=== PATIENT | male | born 1975 | race Caucasian/White ===

== ENCOUNTER 2020-01-12 09:32 | Emergency (ER) | payer OTHER ==
[~2020-01-12] VITALS: Ht 172.7 cm; Wt 77.1 kg
[~2020-01-12 09:32] MED LIST: DILAUDID4 MG PO; NORCO 5-325 TA1 EACH PO
[2020-01-12] MEDS ORDERED: TRAMADOL HCL50 MG PO (14:48)
[2020-01-12] MEDS ORDERED: FLOMAX0.4 MG PO (14:48)
[2020-01-12] MEDS ORDERED: ZOFRAN8 MG PO (14:48)
== END 2020-01-12 15:06 | disposition home or self-care (01) ==
LOC: ED 09:32
DX: N13.2 Hydronephrosis with renal and ureteral calculous obstruction (principal); Z87.891 Personal history of nicotine dependence; Z88.0 Allergy status to penicillin
CPT/HCPCS: 74176; 80053; 81001; 85025; 96374; 96375; 99284-25; J1170; J1885; J2405

== ENCOUNTER 2020-05-27 11:39 | Emergency (ER) | payer OTHER ==
[~2020-05-27] VITALS: Ht 172.7 cm; Wt 77.1 kg
--- OUTSIDE RECORDS SUMMARY | ~2020-05-27 | XMS | Encounter Summary ---
Demographics + + + | Address | [address] | | | [place] [address] | + + + | Home Phone | | + + + | Preferred Language | Unknown | + + + | Marital Status | | + + + | Protestant Affiliation | Unknown | + + + | Race | Unknown | + + + | Ethnic Group | Unknown | + + + Author + + + | Author | [facility] | | | and [place] | + + + | Organization | [facility] | | | and [place] | + + + | Address | Unknown | + + + | Phone | Unavailable | + + + Support + + +---------+ + | Name | Relationship | Address | Phone | + + +---------+ + | Jovana Bailey | ECON | Unknown | | + + +---------+ + Care Team Providers + +------+ + | Care Manager Chemical Name | Role | Phone | + +------+ + PCP | Unavailable | + +------+ + Encounter Details +--------+ + + + + | Date | Type | Department | Care Team | Description | +--------+ + + + + | 11/15/ | [facility] | [facility] | Benny Younger | | | 2006 | Encounter | MED CTR XRAY [address] | MD [address] | | | | | [place] | [address] [place] | | | | | [place] [address] | [place] [address] | | | | | [phone] | [phone] | | | | | | | | +--------+ + + + + Social History + +-------+ +--------+------+ | Tobacco Use | Types | Packs/Day | Years | Date | | | | | Used | | + +-------+ +--------+------+ | Never Assessed | | | | | + +-------+ +--------+------+ + + + | Sex Assigned at | Date Recorded | | | | + + + | Not on file | | + + + documented as of this encounter Plan of Treatment Not on filedocumented as of this encounter Visit Diagnoses Not on filedocumented in this encounter"
--- OUTSIDE RECORDS SUMMARY | ~2020-05-27 | XMS | Encounter Summary ---
Demographics + + + | Address | [address] | | | [place] [address] | + + + | Home Phone | | + + + | Preferred Language | Unknown | + + + | Marital Status | | + + + | Synagogue Affiliation | Unknown | + + + | Race | Unknown | + + + | Ethnic Group | Unknown | + + + Author + + + | Author | [facility] | | | and [place] | + + + | Organization | [facility] | | | and [...] Team Providers + +------+ + | Care Commercial Airplane Pilot Name | Role | Phone | + +------+ + | Yony Canseco MD | PCP | | + +------+ + Reason for Visit +--------+ + | Reason | Comments | +--------+ + | Other | CT report from [facility] | +--------+ + Encounter Details +--------+ + + + + | Date | Type | Department | Care Team | Description | +--------+ + + + + | 03/31/ | Documentati | [facility] | Deepika, | Other (CT report | | 2020 | on | PULMONOLOGY [address] | [facility] | from [facility]) | | | | [address] | [employer] 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 | | | | | [place] | | | | | | [address] | | | | | | [phone] | | | +--------+ + + + + Social History + +-------+ +--------+ + | Tobacco Use | Types | Packs/Day | Years | Date | | | | | Used | | + +-------+ +--------+ + | Former Smoker | | | | Quit: 2009 | + +-------+ +--------+ + + +---+---+---+ | Smokeless Tobacco: | | | | | Never Used | | | | + +---+---+---+ + + +---------+ + | Alcohol Use | Drinks/Week | oz/Week | Comments | + + +---------+ + | Not Currently | | | | + + +---------+ + + + + | Sex Assigned at | Date Recorded | | | | + + + | Not on file | | + + + documented as of this encounter Progress Notes Marivel Poe, Pari Mutuel Ticket Seller - 03/31/2020 4:[address] [facility] and [facility] into [facility] chart documented in this encounter Plan of Treatment Not on filedocumented as of this encounter Visit Diagnoses Not on filedocumented in this encounter"
--- OUTSIDE RECORDS SUMMARY | ~2020-05-27 | XMS | Encounter Summary ---
Demographics + + + | Address | [address] | | | [place] [address] | + + + | Home Phone | | + + + | Preferred Language | Unknown | + + + | Marital Status | | + + + | Quaker Affiliation | Unknown | + + + | Race | Unknown | + + + | Ethnic Group | Unknown | + + + Author + + + | Author | [facility] | | | and [place] | + + + | Organization | [facility] | | | [...] Team Providers + +------+ + | Care Well Logging Operator Mud Analysis Name | Role | Phone | + +------+ + PCP | Unavailable | + +------+ + Encounter Details +--------+ + + + + | Date | Type | Department | Care Team | Description | +--------+ + + + + | 09/25/ | Hospital | [facility] | Benny Younger | | | 2006 - | Encounter | MED CTR OP REHAB | MD [address] | | | | | [address] [place] | [address] [place] | | | 09/27/ | | [place] [address] | [place] [address] | | | 2006 | | [phone] | [phone] | | | | | | | [...]
--- OUTSIDE RECORDS SUMMARY | ~2020-05-27 | XMS | Encounter Summary ---
Demographics + + + | Address | [address] | | | [place] [address] | + + + | Home Phone | | + + + | Preferred Language | Unknown | + + + | Marital Status | | + + + | Adventist Affiliation | Unknown | + + + | Race | Unknown | + + + | Ethnic Group | Unknown | + + + Author + + + | Author | [facility] | | | and [place] | + + + | Organization | [facility] | | | and [...] Team Providers + +------+ + | Care Boom Tender Name | Role | Phone | + +------+ + | Yony Canseco MD | PCP | | + +------+ + Reason for Visit + +--------+ + | Reason | Onset | Comments | | | Date | | + +--------+ + | Referral | 03/26/ | | | (PreAuthorization) | 2020 | | + +--------+ + Encounter Details +--------+ + + + + | Date | Type | Department | Care Team | Description | +--------+ + + + + | 03/26/ | Telephone | [facility] | Rabia Rubalcava, | Referral | | 2019 | | PULMONOLOGY [address] | DIGITAL FORENSIC ANALYST [address] | (PreAuthorization) | | | | [address] | [address], | | | | | [place], [place] | [place] [address] | | | | | [address] | [phone] | | | | | [phone] | | | +--------+ + + + [...] + + documented as of this encounter Miscellaneous Notes Telephone Encounter - Mary Johnson - 03/26/2020 3:26 PM Mohit, is calling regarding Referral (PreAuthorization) and would like a call back. Additional Call Details: Mariposa, from [facility], is needing a Prior Authorization for Patients CT Scan, it can be faxed to: [phone]. If any questions, Mariposa can be reache d at [phone] If this is a symptom based call, was patient offered triage? Not Applicable If this is a symptom based call and you were unable to immediately transfer the call to a lulu delgado charge master coordinator was caller made aware that if at any time he feels it is an emergency they se uld call 911 or go to the nearest emergency room? not applicable documented in this encounter Plan of Treatment Not on filedocumented as of this encounter Visit Diagnoses Not on filedocumented in this encounter"
--- OUTSIDE RECORDS SUMMARY | ~2020-05-27 | XMS | Encounter Summary ---
Demographics + + + | Address | [address] | | | [place] [address] | + + + | Home Phone | | + + + | Preferred Language | Unknown | + + + | Marital Status | | + + + | Baptism Affiliation | Unknown | + + + | Race | Unknown | + + + | Ethnic Group | Unknown | + + + Author + + + | Author | [facility] | | | and [place] | + + + | Organization | [facility] | | | [...] Team Providers + +------+ + | Care Clinical Social Work Aide Name | Role | Phone | + +------+ + | Yony Canseco MD | PCP | | + +------+ + Reason for Visit +--------+ + | Reason | Comments | +--------+ + | Other | recieved records from Dr Hidalgo's office | +--------+ + Encounter Details +--------+ + + + + | Date | Type | Department | Care Team | Description | +--------+ + + + + | 01/27/ | Documentati | [facility] | Deepika, | Other (recieved | | 2019 | on | PULMONOLOGY [address] | [facility] | records from | | | | [address] | Ferry Engineer | [place]'s office) | | | | [place], [place] | | | | | | [address] | | | | | | [phone] | | | +--------+ + + + [...] of this encounter Progress Notes Marivel Poe, Top Steep Tender - 01/28/2020 4:[address] Hidalgo[place] office. Labeled and scanned into PT chart documented in this encounter Plan of Treatment Not on filedocumented as of this encounter Visit Diagnoses Not on filedocumented in this encounter"
--- OUTSIDE RECORDS SUMMARY | ~2020-05-27 | XMS | Encounter Summary ---
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 | | | | | | test has been validated | | | | | | using serum samples. | | | | | | Themkarlaufacturer has not | | | | | | determined the efficacy | | | | | | of this testwhen | | | | | | performed on CSF, | | | | | | plasma, joint or pleural | | | | | | fluidspecimens. The | | | | | | performance | | | | | | characteristics of this | | | | | | test weredetermined by | | | | | | [employer] | | | | | | [employer]Borderline/Equivocal | | | | | | RF results warrant | | | | | | redraw and retestingto | | | | | | confirm.Testing | | | | | | performed at [facility] | | | | | | [employer], [address] | | | | | | [facility] | | | | | | [facility],[place], [place] | | | | | | [phone]. | | | | + + + + + + + + | Specimen | + + | Blood | + + + + + + + | Performing | Address | City/State/Zipcode | Phone Number | | Organization | | | | + + + + + | REFERENCE LAB | [address] [place] [address] | [place], [place] | [phone] | | [facility] | [address] | [address] | | | LABORATORY | | | | + + + + + | REFERENCE LAB | [address] [place] [address] | [place], [place] | | | [facility] | Bl[address] | [address] | | | LABORATORY | | | | + + + + + CBC with Differential (01/30/2020 11:57 AM PST) + + + + + + | Component | Value | Ref Range | Performed | Pathologist | | | | | At | Signature | + + + + + + | WBC | 8.51 | 3.80 - 11.00 | REFERENCE | | | | | K/uL | LAB | | | | | | [facility] | | | | | | LABORATORY | | + + + + + + | RBC | 5.16 | 4.20 - 5.70 | REFERENCE | | | | | M/uL | LAB | | | | | | [facility] | | | | | | LABORATORY | | + + + + + + | Hemoglobin | 15.3 | 13.2 - 17.0 | REFERENCE | | | | | g/dL | LAB | | | | | | [facility] | | | | | | LABORATORY | | + + + + + + | Hematocrit | 44.3 | 39.0 - 50.0 % | REFERENCE | | | | | | LAB | | | | | | [facility] | | | | | | LABORATORY | | + + + + + + | MCV | 85.7 | 80.0 - 100.0 fl | REFERENCE | | | | | | LAB | | | | | | [facility] | | | | | | LABORATORY | | + + + + + + | MCH | 29.7 | 27.0 - 34.0 pg | REFERENCE | | | | | | LAB | | | | | | [facility] | | | | | | LABORATORY | | + + + + + + | MCHC | 34.6 | 32.0 - 35.5 | REFERENCE | | | | | g/dL | LAB | | | | | | [facility] | | | | | | LABORATORY | | + + + + + + | RDW-SD | 40.7 | 37 - 53 fl | REFERENCE | | | | | | LAB | | | | | | [facility] | | | | | | LABORATORY | | + + + + + + | Platelet | 345 | 150 - 400 K/uL | REFERENCE | | | Count | | | LAB | | | | | | [facility] | | | | | | LABORATORY | | + + + + + + | MPV | 8.6 | fl | REFERENCE | | | | | | LAB | | | | | | [facility] | | | | | | LABORATORY | | + + + + + + | Diff Type | AUTOMATED | | REFERENCE | | | | | | LAB | | | | | | [facility] | | | | | | LABORATORY | | + + + + + + | % | 67.12 | % | REFERENCE | | | Neutrophils | | | LAB | | | | | | [facility] | | | | | | LABORATORY | | + + + + + + | % | 23.50 | % | REFERENCE | | | Lymphocytes | | | LAB | | | | | | [facility] | | | | | | LABORATORY | | + + + + + + | Monocyte % | 6.52 | % | REFERENCE | | | | | | LAB | | | | | | [facility] | | | | | | LABORATORY | | + + + + + + | Eosinophils | 2.33 | % | REFERENCE | | | % | | | LAB | | | | | | [facility] | | | | | | LABORATORY | | + + + + + + | Basophils % | 0.53 | % | REFERENCE | | | | | | LAB | | | | | | [facility] | | | | | | LABORATORY | | + + + + + + | Neutrophils | 5.71 | 1.90 - 7.40 | REFERENCE | | | , Absolute | | K/uL | LAB | | | | | | [facility] | | | | | | LABORATORY | | + + + + + + | Absolute | 2.00 | 1.00 - 3.90 | REFERENCE | | | Lymphocytes | | K/uL | LAB | | | | | | [facility] | | | | | | LABORATORY | | + + + + + + | Absolute | 0.55 | 0.00 - 0.80 | REFERENCE | | | Monocytes | | K/uL | LAB | | | | | | [facility] | | | | | | LABORATORY | | + + + + + + | Eosinophils | 0.20 | 0.00 - 0.50 | REFERENCE | | | , Absolute | | K/uL | LAB | | | | | | [facility] | | | | | | LABORATORY | | + + + + + + | Basophils, | 0.05Comment: Testing | 0.00 - 0.10 | REFERENCE | | | Absolute | performed at [facility];[address] | K/uL | LAB | | | | [facility] | | [facility] | | | | Blvd;[place] [address] | | LABORATORY | | + + + + + + + + | Specimen | + + | Blood | + + + + + + + | Performing | Address | City/State/Zipcode | Phone Number | | Organization | | | | + + + + + | REFERENCE LAB | [address] [place] [address] | [place], [place] | [phone] | | [facility] | [address] | [address] | | | LABORATORY | | | | + + + + + | REFERENCE LAB | [address] [place] [address] | [place], [place] | | | [facility] | [address] 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
--- OUTSIDE RECORDS SUMMARY | ~2020-05-27 | XMS | Encounter Summary ---
Demographics + + + | Address | [address] | | | [place] [address] | + + + | Home Phone | | + + + | Preferred Language | Unknown | + + + | Marital Status | | + + + | Latter-Day Affiliation | Unknown | + + + | Race | Unknown | + + + | Ethnic Group | Unknown | + + + Author + + + | Author | [facility] | | | and [place] | + + + | Organization | [facility] | | | and [...] Team Providers + +------+ + | Care Cistern Room Working Supervisor Name | Role | Phone | + +------+ + PCP | Unavailable | + +------+ + Encounter Details +--------+ + + + + | Date | Type | Department | Care Team | Description | +--------+ + + + + | 09/12/ | Imaging | [facility] | Provider, | | | 2019 | Exam | [facility] | MD [address]z [address] | | | | | IMAGING [address] | | | | | [place] | [place] [address] | | | | | [place] [address] | | | | | | [phone] | | | +--------+ + + + [...] Not on filedocumented as of this encounter Procedures + +--------+ + + + | Procedure Name | Priori | Date/Time | Associated Diagnosis | Comments | | | ty | | | | + +--------+ + + + | MRI LUMBAR SPINE WO | Routin | 10/23/2018 | | Results for this | | CONTRAST | e | 12:05 AM | | procedure are in the | | | | PST | | results section. | + +--------+ + + + documented in this encounter Results MRI Lumbar Spine wo Contrast (10/23/2018 12:05 AM PST) + + | Specimen | + + | | + + + + + | Narrative | Performed At | + + + | External films for comparison only | [facility] | | | | | No results will be in the chart. | | + + + + +---------+ + + | Performing | Address | City/State/Zipcode | Phone Number | | Organization | | | | + +---------+ + + | [facility] | | | | + +---------+ + + documented in this encounter Visit Diagnoses Not on filedocumented in this encounter"
--- OUTSIDE RECORDS SUMMARY | ~2020-05-27 | XMS | Encounter Summary ---
Demographics + + + | Address | [address] | | | [place] [address] | + + + | Home Phone | | + + + | Preferred Language | Unknown | + + + | Marital Status | | + + + | Baptist Affiliation | Unknown | + + + | Race | Unknown | + + + | Ethnic Group | Unknown | + + + Author + + + | Author | [facility] | | | and [place] | + + + | Organization | [facility] | | | [...] Team Providers + +------+ + | Care Respite Provider Name | Role | Phone | + +------+ + | Yony Canseco MD | PCP | | + +------+ + Encounter Details +--------+ + + + + | Date | Type | Department | Care Team | Description | +--------+ + + + + | 01/29/ | Orders Only | [facility] | Rachel Braxton, | Moderate persistent | | 2020 | | [address] | [employer] | asthma without | | | | [place] | | complication; | | | | [address] | | [place] | | | | [phone] | | syndrome with lung | | | | | | involvement (HCC) | +--------+ + + + + Social History + +-------+ +--------+ + | Tobacco Use | Types | Packs/Day | Years | Date | | | | | Used | | + +-------+ +--------+ + | Former Smoker | | | | Quit: 2010 | + +-------+ +--------+ + + +---+---+---+ [...] | + +--------+ + + + | RHEUMATOID FACTOR, | Routin | 01/30/2020 | Moderate | Results for this | | IGA, IGG AND IGM | e | 11:57 AM | persistent asthma | procedure are in the | | | | PST | without complication | results section. | | | | | Churg-Americo | | | | | | syndrome with lung | | | | | | involvement (HCC) | | + +--------+ + + + | CCP ANTIBODIES, IGG | Routin | 01/30/2020 | Moderate | Results for this | | IGA | e | 11:57 AM | persistent asthma | procedure are in the | | | | PST | without complication | results section. | | | | | Churg-Americo | | | | | | syndrome with lung | | | | | | involvement (HCC) | | + +--------+ + + + | PRABHU PROFILE, REFLEX | Routin | 01/30/2020 | Moderate | Results for this | | | e | 11:57 AM | persistent asthma | procedure are in the | | | | PST | without complication | results section. | | | | | Churg-Americo | | | | | | syndrome with lung | | | | | | involvement (HCC) | | + +--------+ + + + | CBC WITH | Routin | 01/30/2020 | Moderate | Results for this | | DIFFERENTIAL | e | 11:57 AM | persistent asthma | procedure are in the | | | | PST | without complication | results section. | + +--------+ + + + | IMMUNOGLOBULIN E | Routin | 01/30/2020 | Moderate | Results for this | | | e | 11:57 AM | persistent asthma | procedure are in the | | | | PST | without complication | results section. | | | | | Alisg-Americo | | | | | | syndrome with lung | | | | | | involvement (HCC) | | + +--------+ + + + documented in this encounter Results CBC with Differential (01/30/2020 11:57 AM PST) [...] | | | Absolute | performed at [facility];[address] | K/uL | LAB | | | | [facility] | | [facility] | | | | Bl[address];[place] [address] | | LABORATORY | | + + + + + + + + | Specimen | + + | Blood | + + + + + + + | Performing | Address | City/State/Zipcode | Phone Number | | Organization | | | | + + + + + | REFERENCE LAB | [address] | [place], [place] | [phone] | | [facility] | [address] | [address] | | | LABORATORY | | | | + + + + + | REFERENCE LAB | [address] | [place], [place] | | | [facility] | [address] | [address] | | | LABORATORY | | | [...] | | | | | validated by [facility] | | | | | | [facility] [facility] This | | | | | [...] samples. | | | | | | Themanufacturer has not | | | | | [...] by | | | | | | [employer] [facility] | | | | | | Inc.Borderline/Equivocal | | | | | | RF results warrant | | | | | | redraw and retestingto | | | | | | confirm.Testing | | | | | | performed at [facility] | | | | | | [facility], [address] | | | | | | [address], [address] | | | | | [address],[place], [place] | | | | | | [phone]. | | | | + + + + + + + + | Specimen | + + | Blood | + + + + + + + | Performing | Address | City/State/Zipcode | Phone Number | | Organization | | | | + + + + + | REFERENCE LAB | [address] | [place] | [phone] | | [facility] | [address] | [address] | | | LABORATORY | | | | + + + + + | REFERENCE LAB | [address] | [place] | | | [facility] | [address] | [address] | | | LABORATORY | | | [...] | | saray IgE | performed by [facility], | | LAB | | | | [address] [facility], | | [facility] | | | | [facility] [address] | | LABORATORY | | + + + + + + + + | Specimen | + + | Blood | + + + + + + + | Performing | Address | City/State/Zipcode | Phone Number | | Organization | | | | + + + + + | REFERENCE LAB | [address] [place] [address] | [place], [place] | [phone] | | [facility] | [address] | [address] | | | LABORATORY | | | | + + + + + | REFERENCE LAB | [address] [place] [address] | [place], [place] | | | [facility] | [address] | [address] | | | LABORATORY | | | [...] | | | | | | by [facility], [address] [place] [address] | | | | | | [place] | | | | | | [address] | | | | + + + + + + + + | Specimen | + + | Blood | + + + + + + + | Performing | Address | City/State/Zipcode | Phone Number | | Organization | | | | + + + + + | REFERENCE LAB | [address] [place], [place] [address]ge[place] | [place], [place] | [phone] | | [facility] | [address] | [address] | | | LABORATORY | | | | + + + + + | REFERENCE LAB | [address] [place] [address] | [place], [place] | | | [facility] | [address] | [address] | | | LABORATORY | | | | + + + + + Dotty Gonzalez (01/30/2020 11:57 AM PST) + + + + + + | Component | Value | Ref Range | Performed | Pathologist | | | | | At | Signature | + + + + + + | PRABHU Screen, | NegativeComment: Testing | Negative | REFERENCE | | | Qual | performed at [facility], [address] | | LAB | | | | [facility] | | [facility] | | | | [place] [address] | | LABORATORY | | + + [...] | | | | | with both ID-3 and | | | | | | MPO-ANCA enzyme | | | | | | immunoassays. [facility] | | | | | | [...] | | 3 Antibody | performed by [facility], | | LAB | | | | [address] [facility], | | [facility] | | | | [facility] [address] | | LABORATORY | | + + + + + + + + | Specimen | + + | Blood | + + + + + + + | Performing | Address | City/State/Zipcode | Phone Number | | Organization | | | | + + + + + | REFERENCE LAB | [address] | [place] | [phone] | | [facility] | [address] | [address] | | | LABORATORY | | | | + + + + + | REFERENCE LAB | [address] | [place] | | | [facility] | [address] 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
--- OUTSIDE RECORDS SUMMARY | ~2020-05-27 | XMS | Encounter Summary ---
Demographics + + + | Address | [address] | | | [place] [address] | + + + | Home Phone | | + + + | Preferred Language | Unknown | + + + | Marital Status | | + + + | Evangelical Affiliation | Unknown | + + + | Race | Unknown | + + + | Ethnic Group | Unknown | + + + Author + + + | Author | [facility] | | | and [place] | + + + | Organization | [facility] | | | and [...] | +--------+ + + + + | 11/02/ | Hospital | [facility] | Benny Younger | | | 2006 - | Encounter | MED CTR OP REHAB | MD Alejandro [address] | | | | | [address] [place] | [address] [place] | | | 11/27/ | | [place] [address] | [place] [address] | | | 2006 | | [phone] | [phone] | | | | | | | [...]
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
--- OUTSIDE RECORDS SUMMARY | ~2020-05-27 | XMS | Clinical Summary ---
Demographics + + + | Address | [address] | | | [place] [address] | + + + | Home Phone | | + + + | Preferred Language | Unknown | + + + | Marital Status | | + + + | Yarsanism Affiliation | Unknown | + + + | Race | Unknown | + + + | Ethnic Group | Unknown | + + + Author + + + | Author | [facility] | | | and [place] | + + + | Organization | [facility] | | [...] Team Providers + +------+ + | Care Respiratory Therapy Assistant Name | Role | Phone | + +------+ + | Yony Canseco MD | PCP | | + +------+ + Allergies + + + + + + | Active Allergy | Reactions | Severity | Noted | Comments | | | | | Date | | + + + + + + | Morphine And Related | Sensitivity | | 10/30/20 | | | | | | 19 | | + + + + + + | Penicillins | Unknown | | 12/17/20 | | | | | | 16 | | + + + + + + Medications + + + +---------+------+------+-------+ | Medication | Sig | Dispensed | Refills | Star | End | Statu | | | | | | t | Date | s | | | | | | Date | | | + + + +---------+------+------+-------+ | ADVAIR DISKUS | | | 0 | 02/1 | | Activ | | 250-50 MCG/DOSE | | | | 7/20 | | e | | diskus inhaler | | | | 20 | | | + + + +---------+------+------+-------+ | albuterol 90 | | | 0 | 02/2 | | Activ | | mcg/puff inhaler | | | | 0/20 | | e | | | | | | 20 | | | + + + +---------+------+------+-------+ | gabapentin | Take 3,000 mg by | | 0 | 10/1 | | Activ | | (NEURONTIN) 300 mg | mouth. | | | 0/20 | | e | | capsule | | | | 19 | | | + + + +---------+------+------+-------+ | rOPINIRole | Take 0.35 mg by | | 0 | 10/1 | | Activ | | (REQUIP) 0.5 MG | mouth. | | | 0/20 | | e | | tablet | | | | 19 | | | + + + +---------+------+------+-------+ | baclofen | | | 0 | 10/3 | | Activ | | (LIORESAL) 5 mg | | | | 0/20 | | e | | tablet | | | | 19 | | | + + + +---------+------+------+-------+ | DULoxetine | | | 0 | 01/2 | | Activ | | (CYMBALTA) [address] | | | | 02/14 | | e | | capsule | | | | 20 | | | + + + +---------+------+------+-------+ | tiotropium | Inhale contents of | 30 | 5 | /2 | | Activ | | (SPIRIVA HANDIHALER) | one capsule once | capsule | | 05/17 | | e | | 18 mcg inhalation | daily (do not | | | 20 | | | | capsuleIndications: | swallow capsules). | | | | | | | Moderate persistent | | | | | | | | asthma without | | | | | | | | complication | | | | | | | + + + +---------+------+------+-------+ | montelukast | Take 1 tablet by | 30 | 11 | / | | Activ | | (SINGULAIR) 10 mg | mouth Daily. | tablet | | 05/17 | | e | | tabletIndications: | | | | 20 | | | | Moderate persistent | | | | | | | | asthma without | | | | | | | | complication, | | | | | | | | Seasonal allergies | | | | | | | + + + +---------+------+------+-------+ Active Problems + + + | Problem | Noted Date | + + + | Moderate persistent asthma without complication | 01/30/2020 | + + + Encounters +--------+ + + + + | Date | Type | Specialty | Care Team | Description | +--------+ + + + + | 05/23/ | Virtual | Pulmonology | Rabia Rubalcava, | Moderate persistent | | 2019 | Office | | NEWSPAPER CORRESPONDENT | asthma without | | | Visit | | | complication | | | | | | (Primary Dx); | | | | | | Churg-Americo | [...] allergies | +--------+ + + + + | 03/31/ | Documentati | Pulmonology | Deepika, | Other (CT report | | 2020 | on | | Shanti Stone | from [facility]) | | | | | 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 | | +--------+ + + + + | 03/26/ | Telephone | Pulmonology | Rabia Rubalcava, | Referral | | 2020 | | | NEWSPAPER CORRESPONDENT | (PreAuthorization) | +--------+ + + + + from Last 3 Months Social History + +-------+ +--------+ + | [...] on file | | + + + Last Filed Vital Signs + + + [...] | | + + + + + Plan of Treatment + + + + + | Health Maintenance | Due Date | Last | Comments | | | | Done | | + + + + + | Vaccine: | | | | | Pneumococcal 19-64 | 2 | | | | (1 of 1 - PPSV23) | | | | + + + + + | Vaccine: | | | | | Dtap/Tdap/Td (1 - | 5 | | | | Tdap) | | | | + + + + + | Vaccine: Influenza | Completed | 09/27/20 | | | | | 19, | | | | | 08/03/20 | | | | | 18, | | | | | 11/05/20 | | | | | 16, | | | | | Addition | | | | | al | | | | | history | | | | | exists | | + + + + + Procedures + +--------+ + + + | Procedure Name | Priori | Date/Time | Associated Diagnosis | Comments | | | ty | | | | + +--------+ + + + | IMAGING REPORT - | | 03/31/2020 | | Results for this | | EXTERNAL SCAN | | 12:00 AM | | procedure are in the | | | | PDT | | results section. | + +--------+ + + + from Last 3 Months Results IMAGING REPORT - EXTERNAL SCAN (03/31/2020 12:00 AM PDT) + + + | Narrative | Performed At | + + + | Ordered by an | | | unspecified provider. | | + + + from Last 3 Months Insurance +---------+--------+ +--------+ +---------+--------+ | Payer | Benefi | Subscriber | Effect | Phone | Address | Type | | | t Plan | ID | manuel | | | | | | / | | Dates | | | | | | Group | | | | | | +---------+--------+ +--------+ +---------+--------+ | | [employer]ICAR | [id number] | 09/22/ | [phone] | | Indemn | | | E WEST | | 2019-P | 0 | | ity | | | HNFS | | resent | | | | +---------+--------+ +--------+ +---------+--------+ + +--------+ +--------+ + + | Guarantor Name | Accoun | Relation to | Date | Phone | Billing Address | | | t Type | Patient | of | | | | | | | | | | + +--------+ +--------+ + + | Shayan Bailey | Person | Self [birth year] | [address] [place] | | L | al/Fam | | 1975 | [phone] | [place] [address] | | | melanie | | | 2 (Home) | | + +--------+ +--------+ + + Advance Directives + + + + + | Type | Date Recorded | Patient | Explanation | | | | 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
--- OUTSIDE RECORDS SUMMARY | ~2020-05-27 | XMS | Encounter Summary ---
Demographics + + + | Address | [address] | | | [place] [address] | + + + | Home Phone | | + + + | Preferred Language | Unknown | + + + | Marital Status | | + + + | Jain Affiliation | Unknown | + + + | Race | Unknown | + + + | Ethnic Group | Unknown | + + + Author + + + | Author | [facility] | | | and [place] | + + + | Organization | [facility] | | | and [...] Team Providers + +------+ + | Care Employment Training Specialist Name | Role | Phone | + [...] | | [address] | [place] [address] | | | | | [place] [address] | | | | | | [phone] | | | +--------+ + + + [...] + + + | MRI LUMBAR SPINE | Routin | 10/23/2018 | | Results for this | | SACRUM WO CONTRAST | e | 12:00 AM | | procedure are in the | | | | PST | | results section. | + +--------+ + + + documented in this encounter Results MRI Lumbar Spine Sacrum WO Contrast (10/23/2018 12:00 AM PST) + + | Specimen | [...]
--- OUTSIDE RECORDS SUMMARY | ~2020-05-27 | XMS | Encounter Summary ---
Demographics + + + | Address | [address] | | | [place] [address] | + + + | Home Phone | | + + + | Preferred Language | Unknown | + + + | Marital Status | | + + + | Catholic Affiliation | Unknown | + + + | Race | Unknown | + + + | Ethnic Group | Unknown | + + + Author + + + | Author | [facility] | | | and [place] | + + + | Organization | [facility] | | | [...] Team Providers + +------+ + | Care Industrial Relations Analyst Name | Role | Phone | + +------+ + PCP | Unavailable | + +------+ + Encounter Details +--------+ + + + + | Date | Type | Department | Care Team | Description | +--------+ + + + + | 10/04/ | Hospital | [facility] | Benny Younger | | | 2006 - | Encounter | MED CTR OP [facility] | MD Alej[address] | | | | [address] [place] | [address] [place] | | | 10/27/ | | [place] [address] | [place] [address] | | | 2006 | | [phone] | [phone] | | | | | | | [...]
--- OUTSIDE RECORDS SUMMARY | ~2020-05-27 | XMS | Encounter Summary ---
Demographics + + + | Address | [address] | | | [place] [address] | + + + | Home Phone | | + + + | Preferred Language | Unknown | + + + | Marital Status | | + + + | Church Affiliation | Unknown | + + + [...] Team Providers + +------+ + | Care Drop Wirer Name | Role | Phone | + +------+ + | Yoyn Canseco MD | PCP | | + +------+ + Reason for Visit +--------+ + | Reason | Comments | +--------+ + | Other | Records from PCP | +--------+ + Encounter Details +--------+ + + + + | Date | Type | Department | Care Team | Description | +--------+ + + + + | 01/29/ | Documentati | [facility] | Deepika, | Other (Records from | | 2020 | on | PULMONOLOGY [address] | Marivel Carlin, [facility] | PCP) | | | | [address] | [employer]ot Operations Manager | | | | | [place] | | | | | | [address] | | | | | | [phone] | | | +--------+ + + + [...] of this encounter Progress Notes Marivel Poe, Associate School Psychologist - 01/30/2020 9:41 AM PSTRequested and recei malcolm records from PT PCP Dr Yony Canseco at . Labeled and scanned into PT c hart 9: 43 AM PSTdocumented in this encounter Plan of Treatment Not on filedocumented as of this encounter Visit Diagnoses Not on filedocumented in this encounter"
--- OUTSIDE RECORDS SUMMARY | ~2020-05-27 | XMS | Encounter Summary ---
Demographics + + + | Address | [address] | | | [place] [address] | + + + | Home Phone [...] Team Providers + +------+ + | Care Hardboard Panel Printer Name | Role | Phone | + +------+ + | Yony Canseco MD | PCP | | + +------+ + Reason for Visit +--------+ + | Reason | Comments | +--------+ + | Other | 3 step | +--------+ + Encounter Details +--------+ + + + + | Date | Type | Department | Care Team | Description | +--------+ + + + + | 01/29/ | Documentati | [facility] | Deepika, | Other (3 step) | | 2020 | on | PULMONOLOGY [address] | [facility] | | | | | [address] | [employer]er | | | | | [place], [place] | | | | | | [address] | | | | | | [phone] | | | +--------+ + + + [...]
--- OUTSIDE RECORDS SUMMARY | ~2020-05-27 | XMS | Encounter Summary ---
Demographics + + + | Address | [address] | | | [place] [address] | + + + | Home Phone | | + + + | Preferred Language | Unknown | + + + | Marital Status | | + + + | Lutheran Affiliation | Unknown | + + + | Race | Unknown | + + + | Ethnic Group | Unknown | + + + Author + + + | Author | [facility] | | | and [place] | + + + | Organization | [facility] | | | [...] Providers + +------+ + | Care Manager Bilingual Name | Role | Phone | + [...] | | [address] | [place] [address] | | | | | [place] [address] | | | | | | [phone] | | | +--------+ + + + [...] MRI LUMBAR SPINE WO | Routin | 09/12/2019 | | Results for this | | CONTRAST | e | 2:59 PM | | procedure are in the | | | | PDT | | results section. | + +--------+ + + + documented in this encounter Results MRI Lumbar Spine wo Contrast (09/12/2019 2:59 PM PDT) + + | Specimen | + + [...]
[~2020-05-27 11:39] MED LIST changes: +FLOMAX0.4 MG PO; +TRAMADOL HCL50 MG PO; +ZOFRAN8 MG PO
[2020-05-27] MEDS ORDERED: BACLOFEN5 MG PO (11:51)
[2020-05-27] MEDS ORDERED: NEURONTIN300 MG PO (11:51)
[2020-05-27] MEDS ORDERED: REQUIP5 MG PO (11:52)
[2020-05-27] MEDS ORDERED: ADVAIR 100-501 EACH INH (11:52)
[2020-05-27] MEDS ORDERED: VENTOLIN HFA18 GM INH (11:52)
[2020-05-27] MEDS ORDERED: SPIRIVA18 MCG INH (11:53)
[2020-05-27] MEDS ORDERED: FLOMAX0.4 MG PO (14:35)
[2020-05-27] MEDS ORDERED: MORPHINE SULFAT15 MG PO (14:35)
[2020-05-27] MEDS ORDERED: ZOFRAN4 MG PO (14:35)
== END 2020-05-27 14:48 | disposition home or self-care (01) ==
LOC: ED 11:39
DX: N20.9 Urinary calculus, unspecified (principal); Z87.891 Personal history of nicotine dependence; Z88.0 Allergy status to penicillin; Z88.5 Allergy status to narcotic agent; Z79.899 Other long term (current) drug therapy
CPT/HCPCS: 80053; 81001; 85025; 96374; 96375; 99284-25; J1885; J2270; J2405

== ENCOUNTER 2020-06-16 07:55 | Day surgery (SDC) | payer OTHER ==
[~2020-06-16] VITALS: Ht 180.3 cm; Wt 78.5 kg
[~2020-06-16 07:55] MED LIST changes: +ADVAIR 100-501 EACH INH; +BACLOFEN5 MG PO; +MORPHINE SULFAT15 MG PO; +NEURONTIN300 MG PO; +REQUIP5 MG PO; +SPIRIVA18 MCG INH; +VENTOLIN HFA18 GM INH; +ZOFRAN4 MG PO
--- NOTE | 2020-06-16 10:40 | NUR ---
06/16/20 1040 Sejal Seo 1024- PT TO PACU IN SUPINE POSITION. EYES CLOSED WITH ORAL AIRWAY IN PLACE. AUDIBLE UPPER AIRWAY SNORING PRESENT. SP02 100% ON 6 L O2 VIA SIMPLE MASK. REPORT RECEIVED FROM ABRASIVE WORKER. 1029- PT LIFTING ARMS AND REACHING TOWARDS FACE. EYES CLOSED DOES NOT FOLLOW COMMANDS. BITING ORAL AIRWAY. PT ENCOURAGED TO RELAX AND OPEN MOUTH. ORAL AIRWAY DISCONTINUED. PT CONTINUES TO KEEP EYES CLOSED. SP02 >95% ON 6 L O2 VIA SIPMLE MASK. 1030- O2 TITRATED TO ROOM AIR. SPO2 >95%. PT REPOSITIONED TO ALLEVIATE SNORING. PT CONTINUES TO SLEEP, UNRESPONSIVE TO VERBAL STIMULI.
--- NOTE | 2020-06-16 11:16 | NUR ---
MEDICATED FOR 4/10 PAIN PER EMAR AND PATIENT REQUEST. DENIES NAUSEA. STEADY ON FEET WITH ONE PERSON STAND BY ASSIST FOR AMBULATION TO BR. SITTING IN BR TO VOID UNMEASURED BLOODY URINE MIXED WITH CLOTS. REPORTS INCREASE IN PAIN WITH VOIDING.
--- NOTE | 2020-06-16 11:30 | NUR ---
MD NOTIFIED OF URETHEREAL BLEEDING. PT DOES NOT FEEL LIKE HE IS LEAKING URINE. HE JUST FEELS LIKE HE IS BLEEDING AND CANT CONTROLL IT. MD SUGGESTS PLACING 4X4 OVER THE AREA AND HAVING THE PT APPLY GENTLE PRESSURE. THIS IS DONE
--- NOTE | 2020-06-17 13:25 | OR ---
[facility] [address] [place], [place] [address] Signed DATE OF OPERATION: 06/16/2020 SURGEON: Celia Conteh MD PREOPERATIVE DIAGNOSES: Right mid ureterolithiasis with associated mild hydronephrosis. POSTOPERATIVE DIAGNOSES: Right ureteral calculi x2, with associated mild to moderate right hydronephrosis. NAMES OF PROCEDURES: 1. Diagnostic cystoscopy with right retrograde pyelogram. 2. Urethral dilation using Colin sounds from 12-Faroese to 24-Faroese. 3. Right semi-rigid ureteroscopy with laser lithotripsy and basket extraction of stone fragments. 4. Insertion of indwelling right ureteral stent. ANESTHESIA: General. ESTIMATED BLOOD LOSS: Minimal. COMPLICATIONS: None. SPECIMENS: Tiny fragments of right ureteral calculi sent to the lab for stone analysis. DRAINS: A 6 x 26 cm double-J ureteral stent inserted into the right ureter. INDICATIONS FOR PROCEDURE: Mr. Bailey is a 44-year-old gentleman with no previous history of nephrolithiasis, who recently presented to my clinic with a 5-6 month history of intermittent right flank pain and nausea. He had initially been seen in the Emergency Department in December 2019 with right flank pain, was sent home to attempt a trial of passage. The pain was intermittent in nature until late April when he experienced another severe bout of right-sided flank pain. He was finally able to undergo a CT scan on June 04, 2020 which revealed 2 mid right ureteral calculi, 1 measuring 6.5 mm and the other 2.5 mm. He Electronically Signed By: CELIA CONTEH MD 06/17/20 1325 PATIENT NAME: SOSA BAILEY OPERATIVE REPORT DATE OF : 77 REPORT #: [id number] PHYSICIAN: CELIA CONTEH MD PCP: MARBIN MALIK MD REPORT IS CONFIDENTIAL AND NOT TO BE RELEASED WITHOUT AUTHORIZATION [facility] [address] [place], [place] [address] Signed presents today to undergo definitive extraction of both of his obstructing right mid ureteral calculi. OPERATIVE FINDINGS: On cystoscopy, there was no evidence of any suspicious masses, lesions, or stones. Bilateral ureteral orifices are in their normal anatomic location and the left ureteral orifice is effluxing clear urine. Visual inspection of the external genitalia reveals a smaller than average urethral meatus. The urethra did require dilation from 12-Faroese to 24-Faroese to allow for safe passage of the 22.5 Faroese introducer. Urethral dilation was performed without difficulty. Two ureteral calculi were seen just over the sacrum in the right mid ureter on ureteroscopy. The stones were fragmented using a holmium laser at 8 and 0.8 settings. The stones fragmented quite easily using a 270 micron fiber. 100% of the stone was successfully extracted from the right ureter. Most of the stone was obliterated using the laser, leaving only a small amount of fragments to be sent for stone analysis. A 6 x 26 cm double-J ureteral stent was inserted into the right ureter under direct visualization without difficulty. Right retrograde pyelogram did reveal evidence of a small filling defect in the mid right ureter. The rest of the ureter was patent and somewhat dilated proximal to the filling defect. Mild to moderate hydronephrosis was seen within the kidney with some blunting of the calices noted. DESCRIPTION OF PROCEDURE: After informed consent was obtained, the patient was taken back to the operating room. He was transferred from [facility] to the operating room table, where general anesthesia was induced. He was placed in the dorsal lithotomy position and his genitalia were prepped and draped in a standard sterile fashion. Using a 30-degree lens on a 22.5-Faroese introducer, rigid cystoscope was then inserted through the urethra and in his bladder under direct visualization. Prior to insertion of the camera, his urethra was dilated using Colin sounds from 12-Faroese to 24-Faroese without difficulty. Once in the bladder, I performed a thorough diagnostic cystoscopy. Please see above findings. Attention was turned to the right ureteral orifice. A cone-tipped catheter was advanced to the level of the right UO and a right retrograde pyelogram was performed. Please see above findings. I then removed the cone-tipped catheter and inserted a semi-rigid ureteroscope alongside the safety wire. Ureteroscopy did reveal the presence of 2 stones in the mid right ureter just over the sacrum. These stones were fragmented using a holmium laser at 8 and 0.8 settings. The stone was easily Electronically Signed By: CELIA CONTEH MD 06/17/20 1324 PATIENT NAME: SOSA BAILEY OPERATIVE REPORT DATE OF : 77 REPORT #: [id number] PHYSICIAN: CELIA CONTEH MD PCP: MARBIN MALIK MD REPORT IS CONFIDENTIAL AND NOT TO BE RELEASED WITHOUT AUTHORIZATION [facility] [address] [place] [id number] Signed pulverized using a 270 micron fiber. I was able to extract some very small fragments from the ureter however most of it had been obliterated. Once I was satisfied that of all these stone fragments were gone, I passed a Sensor wire through the ureteroscope and up into the right renal pelvis. The ureteroscope was then removed fully intact. Over the indwelling 0.035 Sensor wire, I passed a 6 x 26 cm double-J ureteral stent into the right collecting system under direct visualization without difficulty. Once the wire was pulled, an adequate proximal coil was seen within the right renal pelvis. An adequate distal coil was seen on cystoscopy. The patient's bladder was then drained and the stone fragments were placed in a specimen cup. The procedure was then terminated. The patient tolerated the procedure well without any complication. He will now be transferred to the postanesthesia care unit in stable condition. DISPOSITION: The patient will be discharged to home today after recovering from general anesthetic. I discussed the details of today's procedure with the patient and his son and answered all their questions. He will return to clinic on July 03, 2020 to undergo cystoscopy with right ureteral stent extraction. At that time, he will be scheduled to undergo a standard IVP approximately 1 month thereafter. He will be sent home today with Macrobid 100 mg p.o. b.i.d. for a total of 7 days along with Ultram 100 mg p.o. q.6 hours p.r.n. pain, dispense #30. MD JOANN Galeano/JAVIER /[id number] Copies: ~ Electronically Signed By: CELIA CONTEH MD 06/17/20 1325 PATIENT NAME: SOSA BAILEY OPERATIVE REPORT DATE OF : 77 REPORT #: [id number] PHYSICIAN: CELIA CONTEH MD PCP: MARBIN MALIK MD REPORT IS CONFIDENTIAL AND NOT TO BE RELEASED WITHOUT AUTHORIZATION
== END 2020-06-16 12:05 | disposition home or self-care (01) ==
LOC: DS 07:55 → OPS 07:55 → DS 08:15 → OPS 08:51
PROVIDERS: Urology
PROC: 0T768DZ Dilation of Right Ureter with Intraluminal Device, Via Natural or Artificial Opening Endoscopic (ICD-10-PCS; 2020-06-16)
PROC: BT1DYZZ Fluoroscopy of Right Kidney, Ureter and Bladder using Other Contrast (ICD-10-PCS; 2020-06-16)
PROC: 0TC68ZZ Extirpation of Matter from Right Ureter, Via Natural or Artificial Opening Endoscopic (ICD-10-PCS; principal; 2020-06-16 08:15)
DX: N13.2 Hydronephrosis with renal and ureteral calculous obstruction (principal); Z87.891 Personal history of nicotine dependence
CPT/HCPCS: 00910; 74420; 82365; C1769; C2617; J0696; J1100; J1885; J2001; J2405; J2704; J3010; Q9967

== ENCOUNTER 2025-01-11 07:28 | Day surgery (SDC) | payer OTHER ==
[~2025-01-11] VITALS: Ht 180.3 cm; Wt 82.7 kg
[~2025-01-11 07:28] MED LIST changes: -ADVAIR 100-501 EACH INH; -BACLOFEN5 MG PO; -DILAUDID4 MG PO; -FLOMAX0.4 MG PO; +IBLOOD GLUCOSE TEST STRIP 1 EA TEST VI PRN; +LACTATED RINGER'S 1,000 ML IV SCH; +LIDOCAINE HCL 1% 5 ML SDV INJ ONE; -MORPHINE SULFAT15 MG PO; -NEURONTIN300 MG PO; -NORCO 5-325 TA1 EACH PO; -REQUIP5 MG PO; -SPIRIVA18 MCG INH; -TRAMADOL HCL50 MG PO; -VENTOLIN HFA18 GM INH; -ZOFRAN4 MG PO; -ZOFRAN8 MG PO
[2025-01-11] MEDS ORDERED: LIDOCAINE HCL 2% 5 ML SDV ONE (09:12)
[2025-01-11] MEDS ORDERED: propofoL 200 MG/20 ML VIAL ONE ×2 (09:12)
--- NOTE | 2025-01-11 09:56 | NUR ---
01/11/25 0956 Mohini Coello 0917- PT PRESENTS TO PACU, LEFT LATERAL POSITION, NON REACTIVE TO STIMULUS. BREATHING EVEN AND NON LABORED, O2 AT 6L PER MASK. LR INFUSING TO RH IV. ABD SOFT, NON DISTENDED. PT PASSING GAS. ALL MONITORS IN PLACE, NO SIGNS OF DISTRESS. 3956- DR YAN AT BEDSIDE TO ATTEMPT TO TALK WITH PT, NON REACTIVE TO TACTILE AND VERBAL STIMULI. DR YAN TO TALK WITH FAMILY. PT CONTINUES TO REST.
[2025-01-11 10:25] VITALS: BP 116/77
== END 2025-01-11 10:35 | disposition home or self-care (01) ==
LOC: DS 07:28
PROVIDERS: ATTEND Surgery
PROC: 0DBH8ZZ Excision of Cecum, Via Natural or Artificial Opening Endoscopic (ICD-10-PCS; principal; 2025-01-11)
PROC: 0DBN8ZZ Excision of Sigmoid Colon, Via Natural or Artificial Opening Endoscopic (ICD-10-PCS; 2025-01-11)
PROC: 0DBP8ZZ Excision of Rectum, Via Natural or Artificial Opening Endoscopic (ICD-10-PCS; 2025-01-11)
DX: Z12.11 Encounter for screening for malignant neoplasm of colon (principal); K52.9 Noninfective gastroenteritis and colitis, unspecified; J96.10 Chronic respiratory failure, unspecified whether with hypoxia or hypercapnia; K63.5 Polyp of colon; K62.1 Rectal polyp; K91.5 Postcholecystectomy syndrome; Z90.49 Acquired absence of other specified parts of digestive tract; Z98.890 Other specified postprocedural states; Z88.0 Allergy status to penicillin; Z88.8 Allergy status to other drugs, medicaments and biological substances
CPT/HCPCS: 00812; J2003; J2704; J7121